=== PATIENT | female | born 1995 | race Caucasian/White ===

== ENCOUNTER 2024-10-13 09:22 | Outpatient (CLI) | payer BC, SELFPAY | END 2024-10-13 09:23 | disposition home or self-care (01) | LOC: NFLDREF 10-15 14:49 | PROVIDERS: PCP Family Medicine; Referring Provider Family Medicine; Visit Provider Nurse Practitioner Family | DX: R30.0 Dysuria (principal); N39.0 Urinary tract infection, site not specified | CPT/HCPCS: 87086 ==